=== PATIENT | male | born 1955 | race Caucasian/White ===

== ENCOUNTER 2024-06-25 08:06 | Outpatient (RCR) | payer MEDICARE, OTHER, SELFPAY ==
[2024-06-25 07:07] VITALS: BP_SYST 110
--- NOTE | 2024-06-25 07:50 | OPREHPOC ---
Outpatient Therapy Plan of Care This is a Multidisciplinary Plan of Care that may contain components documented by all disciplines (PT, OT, and ST.) PT Problem 1 PT Problem #1 Knowledge Deficit PT Goal 1 Goal / Goal Update 1. independent and compliant with HEP Target Visit 6 PT Problem 2 PT Problem #2 Pain PT Goal 1 Goal / Goal Update 1. 2/10 or less pain at worst in the R shoulder Target Visit 12 PT Problem 3 PT Problem #3 Impaired Range of Motion PT Goal 1 Goal / Goal Update 1. 145 degrees or better active R shoulder flexion 2. 90 degrees active R shoulder ER 3. 45 degrees or better active R shoulder IR 4. 130 degrees or better active R shoulder abd Target Visit 12 PT Problem 4 PT Problem #4 Impaired Strength PT Goal 1 Goal / Goal Update 1. 4/5 or better R shoulder flexion and abduction 2. 4+/5 or better R shoulder ER and IR 3. 5/5 R elbow flex and ext Target Visit 12 PT Problem 5 PT Problem #5 Impaired Functional Mobil PT Goal 1 Goal / Goal Update 1. quick dash to display less than 20% functional deficits 2. patient to lift 10lbs to shoulder level shelf with the R arm 3. functional reach behind back with the R UE with minimal to no trunk flexion compensation Target Visit 12
--- NOTE | 2024-06-25 07:50 | PTOPEVAL1 ---
Assessment and note entered by JT File, PT Evaluation Information Assessment Status Evaluation Diagnosis s/p R TSA ICD-10 Condition Codes (PT) M25.511 Onset 05/02/24 Subjective Information patient reports he had right total shoulder replacement on 05/02/24. he reports this was done by Dr. Ennis. he reports since surgery he has been taking it easy. he reports he has not yet done any therapy. he reports he has been out of the sling since the 4 week roopa. he reports he was told no more than 10lbs lifting the R UE. he reports prior to surgery he was bone on bone and had pain all through the night. he reports he still does not sleep well, but more due to his bad back than his shoulder. he reports he requires no assistance to dress or put on a shirt. he reports the shoulder feels pretty good, but is weak. Reported Pain Level Pain Score 3: Self Report Assessment PT Clinical Summary mr. norman is a 68 yo man who presents to skilled PT services for evaluation and treatment s /p R TSA. he is a little over 7 weeks post op, and presents with orders to progression rom as tolerated and begin light strengthening up to 10lbs in the R hand. he presents today with deficits in R shoulder active rom, passive rom, strength, and functional use/reaching. he would benefit from continued skilled PT to address these objective/functional deficits and return to his prior level functional activity performance/ quality of life. Plan of Care Interventions Electrical Stimulation,Hot Pack/Cold Pack,Manual Therapy,Neuro Re-education,Patient/Caregiver Educati,Therapeutic Activities,Therapeutic Exercise PT Services Indicated Yes Treatment Frequency and 2x weekly for 12 visits Duration These treatments will address the objective and functional deficits as defined above. The patient will be advanced safely and appropriately in order for the patient to progress towards his/her prior level of function. Additional exercises will be introduced and as well as a comprehensive home exercise program upon discharge, if needed, ?to ensure carryover of functional gains achieved in the clinic. This treatment plan has been reviewed and agreement upon by the patient.
--- NOTE | 2024-08-01 07:47 | PTOPPROG ---
Assessment and note entered by Dallas Schafer Evaluation Information Assessment Status Discharge Diagnosis s/p R TSA ICD-10 Condition Codes (PT) Pain in right shoulder M25.511 Onset 05/02/24 Subjective Information Pt. reports he has been on vacation. He states that he notices his mobility is improving, but does not have the strength to lift the arm overhead. He states that pain is minimal. He returns to the doctor on 08/13/23. Assessment PT Clinical Summary Pt. has attended a total of 6 treatment sessions. He has missed the last 3 weeks of therapy due to being out of town. He continues to present with deficits in right shoulder strength, limiting overhead function. Continued skilled PT is recommended advancing gentle strengthening techniques per protocol. Plan of Care Interventions Electrical Stimulation,Hot Pack/Cold Pack,Manual Therapy,Neuro Re-education,Patient/Caregiver Education,Therapeutic Activities,Therapeutic Exercise PT Services Indicated Yes Treatment Frequency and Continue 2x/week x 6 visits Duration These treatments will address the objective and functional deficits as defined above. The patient will be advanced safely and appropriately in order for the patient to progress towards his/her prior level of function. Additional exercises will be introduced and as well as a comprehensive home exercise program upon discharge, if needed, ?to ensure carryover of functional gains achieved in the clinic. This treatment plan has been reviewed and agreement upon by the patient.
--- NOTE | 2024-08-08 07:09 | PCPTNOTE ---
Cancelled session today.
--- NOTE | 2024-08-22 08:00 | OPREHPOC ---
Outpatient Therapy Plan of Care This is a Multidisciplinary Plan of Care that may contain components documented by all disciplines (PT, OT, and ST.) PT Problem 1 PT Problem #1 Knowledge Deficit PT Goal 1 Goal / Goal Update 1. independent and compliant with HEP Target Visit 6 Progress Met PT Problem 2 PT Problem #2 Pain PT Goal 1 Goal / Goal Update 1. 2/10 or less pain at worst in the R shoulder Target Visit 16 Progress Not Met PT Problem 3 PT Problem #3 Impaired Range of Motion PT Goal 1 Goal / Goal Update 1. 145 degrees or better active R shoulder flexion . met 2. 90 degrees active R shoulder ER. met 3. 45 degrees or better active R shoulder IR. met 4. 130 degrees or better active R shoulder abd. met Target Visit 12 Progress Met PT Problem 4 PT Problem #4 Impaired Strength PT Goal 1 Goal / Goal Update 1. 4/5 or better R shoulder flexion and abduction 2. 4+/5 or better R shoulder ER and IR 3. 5/5 R elbow flex and ext Target Visit 16 Progress Not Met PT Problem 5 PT Problem #5 Impaired Functional Mobility PT Goal 1 Goal / Goal Update 1. quick dash to display less than 20% functional deficits. met 2. patient to lift 10lbs to shoulder level shelf with the R arm. met 3. functional reach behind back with the R UE with minimal to no trunk flexion compensation. not met Target Visit 16 Progress Partially Met
--- NOTE | 2024-08-22 08:00 | PTOPREEVAL ---
Assessment and note entered by JT File, PT Evaluation Information Assessment Status Re-evaluation Diagnosis s/p R TSA ICD-10 Condition Codes (PT) Pain in right shoulder M25.511 Onset 05/02/24 Subjective Information patient returns to the MD on 09/18/24. he was unable to make his MD appointment earlier this month due to weather and concerns with driving on the roads. patient reports he has been able to play guitar without pain. he reports he was even able to stand and play it recently without issues. he reports he struggles the most with reaching behind his back. he has been practicing putting items on shelves and in cabinets with the R UE at home. he reports he is bothered by some R elbow pain today that is along the inside of the R elbow . Reported Pain Level Pain Score 0: Self Report Assessment PT Clinical Summary mr. norman presents to skilled PT services for his 12th skilled therapy visit s/p R TSA. he presents today having achieved goals for R shoulder rom, HEP performance, and partial achievement of functional goals. however, he still lacks achievement of pain goal, strength goals, and remaining functional goal for IR functional reach. he would benefit from continued skilled PT to continue to address these remaining deficits prior to his follow up and return to MD on . Plan of Care Interventions Manual Therapy,Neuro Re-education,Patient/ Caregiver Education,Therapeutic Activities, Therapeutic Exercise PT Services Indicated Yes Treatment Frequency and continue skilled PT 1x weekly for 4 more visits Duration These treatments will address the objective and functional deficits as defined above. The patient will be advanced safely and appropriately in order for the patient to progress towards his/her prior level of function. Additional exercises will be introduced and as well as a comprehensive home exercise program upon discharge, if needed, ?to ensure carryover of functional gains achieved in the clinic. This treatment plan has been reviewed and agreement upon by the patient.
--- NOTE | 2024-09-19 09:07 | OPREHPOC ---
Outpatient Therapy Plan of Care This is a Multidisciplinary Plan of Care that may contain components documented by all disciplines (PT, OT, and ST.) PT Problem 1 PT Problem #1 Knowledge Deficit PT Goal 1 Goal / Goal Update 1. independent and compliant with HEP Target Visit 6 Progress Met PT Problem 2 PT Problem #2 Pain PT Goal 1 Goal / Goal Update 1. 2/10 or less pain at worst in the R shoulder Target Visit 16 Progress Met PT Problem 3 PT Problem #3 Impaired Range of Motion PT Goal 1 Goal / Goal Update 1. 145 degrees or better active R shoulder flexion . met 2. 90 degrees active R shoulder ER. met 3. 45 degrees or better active R shoulder IR. met 4. 130 degrees or better active R shoulder abd. met Target Visit 12 Progress Met PT Problem 4 PT Problem #4 Impaired Strength PT Goal 1 Goal / Goal Update 1. 4/5 or better R shoulder flexion and abduction 2. 4+/5 or better R shoulder ER and IR 3. 5/5 R elbow flex and ext Target Visit 16 Progress Met PT Problem 5 PT Problem #5 Impaired Functional Mobility PT Goal 1 Goal / Goal Update 1. quick dash to display less than 20% functional deficits. met 2. patient to lift 10lbs to shoulder level shelf with the R arm. met 3. functional reach behind back with the R UE with minimal to no trunk flexion compensation. met Target Visit 16 Progress Met
--- NOTE | 2024-09-19 09:08 | PTOPDC ---
Assessment and note entered by Carolina Barnett, PT Evaluation Information Assessment Status Discharge Diagnosis s/p R TSA ICD-10 Condition Codes (PT) Pain in right shoulder M25.511 Onset 05/02/24 Subjective Information Nathanael reports his right shoulder is doing well. 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 He saw Dr. Ennis on 09/18/24 and was released from his care. He reports Dr. Ennis was very pleased with his progress. Reported Pain Level Pain Score 0: Self Report Assessment PT Clinical Summary Nathanael Pickard has completed 16 skilled PT visits following a R TSA performed on 05/02/24. He is reporting no pain and no difficulty with ADLs and just mild limitations with heavier housechores. He was released by his surgeon on 09/18/24. He demonstrates improved right shoulder AROM and improved right shoulder strength. He has met all goals and is discharged from skilled PT. Plan of Care PT Services Indicated No
== END 2024-09-19 18:12 | disposition home or self-care (01) ==
LOC: CHSPT 08:06
DX: Z47.1 Aftercare following joint replacement surgery (principal); Z96.611 Presence of right artificial shoulder joint
CPT/HCPCS: 97014; 97110; 97140; 97150; 97161; 97530; 97750; G0283

== ENCOUNTER 2024-09-26 07:54 | Outpatient (RCR) | payer MEDICARE, SELFPAY ==
--- NOTE | 2024-09-26 08:08 | OPREHPOC ---
Outpatient Therapy Plan of Care This is a Multidisciplinary Plan of Care that may contain components documented by all disciplines (PT, OT, and ST.) PT Problem 1 PT Problem #1 Knowledge Deficit PT Goal 1 Goal / Goal Update 1. independent and compliant with HEP Target Visit 4 PT Problem 2 PT Problem #2 Pain PT Goal 1 Goal / Goal Update 1. patient to report no more than 4/10 pain at worst in the lower back Target Visit 8 PT Problem 3 PT Problem #3 Impaired Range of Motion PT Goal 1 Goal / Goal Update 1. active lumbar flexion to the ankles 2. active lumbar extension to 10 degrees or better 3. bilateral lumbar active side bending to 30 degrees Target Visit 8 PT Problem 4 PT Problem #4 Impaired Strength PT Goal 1 Goal / Goal Update 1. improve core strength to 4/5 2. improve bilateral hip strength to 4+/5 overall Target Visit 8 PT Problem 5 PT Problem #5 Impaired Functional Mobility PT Goal 1 Goal / Goal Update 1. oswestry to display 20% or less functional deficits 2. patient to squat and lift 30lbs from floor to waist with safe mechanics and no pain 3. patient to tolerate 1 hour of standing exercises without increased pain Target Visit 8
--- NOTE | 2024-09-26 08:08 | PTOPEVAL1 ---
Assessment and note entered by JT File, PT Evaluation Information Assessment Status Evaluation ICD-10 Condition Codes (PT) Pain in Thoracic Spine M54.6,Pain in low back M54. 50 Onset 08/28/24 Subjective Information patient reports he has increased pain in the lower back when he stands too long. 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 he reports he feels like he has to constantly keep moving due to the pain. he reports he does get pain down the legs. Reported Pain Level Pain Score 4: Self Report Assessment PT Clinical Summary mr. norman is a 69 yo man who presents to skilled PT services for evaluation and treatment of lower back pain. he presents today with decreased lumbar rom, pain with pronlonged position holds/standing, weakness in the hips and core, and deficits in functional activity performance per the oswestry. his signs and symptoms are consistent with a lumbar DDD/ spondylosis. Plan of Care Interventions Electrical Stimulation,Hot Pack/Cold Pack,Manual Therapy,Neuro Re-education,Patient/Caregiver Education,Therapeutic Activities,Therapeutic Exercise PT Services Indicated Yes Treatment Frequency and 2x weeky for 8 visits Duration These treatments will address the objective and functional deficits as defined above. The patient will be advanced safely and appropriately in order for the patient to progress towards his/her prior level of function. Additional exercises will be introduced and as well as a comprehensive home exercise program upon discharge, if needed, ?to ensure carryover of functional gains achieved in the clinic. This treatment plan has been reviewed and agreement upon by the patient.
--- NOTE | 2024-11-05 08:04 | OPREHPOC ---
Outpatient Therapy Plan of Care This is a Multidisciplinary Plan of Care that may contain components documented by all disciplines (PT, OT, and ST.) PT Problem 1 PT Problem #1 Knowledge Deficit PT Goal 1 Goal / Goal Update 1. independent and compliant with HEP Target Visit 4 Progress Met PT Goal 2 Goal / Goal Update continue to progress PT Problem 2 PT Problem #2 Pain PT Goal 1 Goal / Goal Update 1. patient to report no more than 4/10 pain at worst in the lower back -progress towards Target Visit 8 Progress Not Met PT Goal 2 Goal / Goal Update continue PT Problem 3 PT Problem #3 Impaired Range of Motion PT Goal 1 Goal / Goal Update 1. active lumbar flexion to the ankles -met 2. active lumbar extension to 10 degrees or better -met 3. bilateral lumbar active side bending to 30 degrees -not met Target Visit 8 Progress Partially Met PT Goal 2 Goal / Goal Update continue #3 PT Problem 4 PT Problem #4 Impaired Strength PT Goal 1 Goal / Goal Update 1. improve core strength to 4/5 -progress towards 2. improve bilateral hip strength to 4+/5 overall -progress towards Target Visit 8 Progress Not Met PT Goal 2 Goal / Goal Update continue PT Problem 5 PT Problem #5 Impaired Functional Mobility PT Goal 1 Goal / Goal Update 1. oswestry to display 20% or less functional deficits -not met 2. patient to squat and lift 30lbs from floor to waist with safe mechanics and no pain -not met 3. patient to tolerate 1 hour of standing exercises without increased pain -met Target Visit 8 Progress Partially Met PT Goal 2 Goal / Goal Update continue #1 & #2
--- NOTE | 2024-11-05 08:05 | PTOPPROG ---
Assessment and note entered by Carolina Barnett, PT Evaluation Information Assessment Status Discharge ICD-10 Condition Codes (PT) Pain in Thoracic Spine M54.6,Pain in low back M54. 50 Onset 08/28/24 Subjective Information Nathanael Pickard reports he has been feeling better since he started PT and his pain hasn't been as high. He is scheduled to have a nerve ablation on 11/08/24 but he is unsure if he wants to go through with it. He states he feels better when he does exercises consistently but he has not been very diligent with performing exercises on his own. He has been able to stand for longer periods and play his music. Assessment PT Clinical Summary Nathanael Pickard has completed 8 skilled PT visits for back pain. He is reporting a decrease in his pain levels and feels PT is helping however, he still has pain and limitations with prolonged standing. He has a nerve ablation scheduled for 11/08/24 but is considering cancelling it. He would like to continue PT rather than have the procedure . He is demonstrating improvements in lumbar AROM, core and hip strength, and tolerance for standing activities. He is progressing toward meeting his PT goals but has not achieved them at this point. He continues to have core and hip weakness and decreased functional abilities. He will continue to benefit from skilled PT to further address ongoing physical and functional limitations. Plan of Care Interventions Electrical Stimulation,Hot Pack/Cold Pack,Neuro Re -education,Therapeutic Exercise PT Services Indicated Yes Treatment Frequency and 2 times a week for 8 visits Duration These treatments will address the objective and functional deficits as defined above. The patient will be advanced safely and appropriately in order for the patient to progress towards his/her prior level of function. Additional exercises will be introduced and as well as a comprehensive home exercise program upon discharge, if needed, ?to ensure carryover of functional gains achieved in the clinic. This treatment plan has been reviewed and agreement upon by the patient.
--- NOTE | 2024-12-03 07:55 | OPREHPOC ---
Outpatient Therapy Plan of Care This is a Multidisciplinary Plan of Care that may contain components documented by all disciplines (PT, OT, and ST.) PT Problem 1 PT Problem #1 Knowledge Deficit PT Goal 1 Goal / Goal Update 1. independent and compliant with HEP Target Visit 4 Progress Met PT Goal 2 Goal / Goal Update continue to progress PT Problem 2 PT Problem #2 Pain PT Goal 1 Goal / Goal Update 1. patient to report no more than 4/10 pain at worst in the lower back -met Target Visit 8 Progress Met PT Goal 2 Goal / Goal Update continue PT Problem 3 PT Problem #3 Impaired Range of Motion PT Goal 1 Goal / Goal Update 1. active lumbar flexion to the ankles -met 2. active lumbar extension to 10 degrees or better -met 3. bilateral lumbar active side bending to 30 degrees -met Target Visit 8 Progress Partially Met PT Goal 2 Goal / Goal Update continue #3 PT Problem 4 PT Problem #4 Impaired Strength PT Goal 1 Goal / Goal Update 1. improve core strength to 4/5 -met 2. improve bilateral hip strength to 4+/5 overall -met Target Visit 8 Progress Met PT Goal 2 Goal / Goal Update continue PT Problem 5 PT Problem #5 Impaired Functional Mobility PT Goal 1 Goal / Goal Update 1. oswestry to display 20% or less functional deficits -not met 2. patient to squat and lift 30lbs from floor to waist with safe mechanics and no pain -met 3. patient to tolerate 1 hour of standing exercises without increased pain -met Target Visit 8 Progress Partially Met PT Goal 2 Goal / Goal Update continue #1 & #2
--- NOTE | 2024-12-03 07:55 | PTOPDC ---
Assessment and note entered by Carolina Barnett, PT Evaluation Information Assessment Status Discharge ICD-10 Condition Codes (PT) Pain in Thoracic Spine M54.6,Pain in low back M54. 50 Onset 08/28/24 Subjective Information Nathanael Pickard reports he is feeling better and notes pain is mostly subsided. He does have soreness all the time in the upper back. He notes he is doing well enough he can probably be done with PT and continue his home exercises. 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 Reported Pain Level Pain Score 1,0: Self Report Assessment PT Clinical Summary Nathanael Pickard has completed 13 skilled PT visits for back pain. He is reporting feeling much better since initiating PT. He notes only soreness in the back and is able to perform all passenger service manager and yard work without increased pain. He demonstrates improved lumbar AROM, improved core and hip strength, improved body mechanics, and improved functional abilities. He has met all but one goal and will be discharged from skilled PT. Plan of Care PT Services Indicated No
== END 2024-12-03 08:37 | disposition home or self-care (01) ==
LOC: CHSPT 07:54
DX: M43.16 Spondylolisthesis, lumbar region (principal); M51.34 Other intervertebral disc degeneration, thoracic region
CPT/HCPCS: 97014; 97110; 97112; 97161; 97530; 97750; G0283